=== PATIENT | female | born 1990 | race Caucasian/White ===

== ENCOUNTER 2020-10-02 07:55 | Inpatient (IN) | payer OTHER ==
[2020-10-02] MEDS: ELECTROLYTE-148 SOLN 1,000 ML IV SCH (10:00)
[2020-10-02] MEDS ORDERED: OXYTOCIN 30 UNITS in 0.9% NS 30 UNIT/500 ML INFUS.BAG IVPB ONE (10:44)
[2020-10-02 10:49] LABS: BASO % 0.7 % (0-2.0); EOS % 0.6 % (0-4.5); HEMATOCRIT 39.4 % (32.4-45.2); HEMOGLOBIN 13.1 GM/dL (10.7-15.3); LYMPH % 19.2 % (8-40); MCH 28.2 pg (25.7-33.7); MCHC 33.2 g/dl (32.0-36.0); MEAN PLT VOLUME 9.1 fl (7.5-11.1); NEUT % 72.5 % (42.8-82.8); PLATELET COUNT 143 10^3/uL (134-434); RBC 4.64 M/mm3 (3.60-5.2); WHITE BLOOD COUNT 10.9 K/mm3 (4.0-10.0)
[2020-10-02 10:56] LABS: INR 0.96 (0.83-1.09); PROTHROMBIN TIME (PATIENT) 11.6 SEC (9.7-13.0)
[2020-10-02 10:58] LABS: ACTIVATED PTT 26.2 SECONDS (25.2-36.5)
[2020-10-02] MEDS: OXYTOCIN 30 UNITS in 0.9% NS 30 UNIT/500 ML INFUS.BAG IVPB SCH (11:00)
[2020-10-02 11:06] LABS: BLOOD UREA NITROGEN 4.4 mg/dL (7-18); CALCIUM 9.1 mg/dL (8.5-10.1)
[2020-10-02 11:09] LABS: CREATININE 0.5 mg/dL (0.55-1.3)
[2020-10-02 11:56] VITALS: BMI 32.5
[2020-10-02] MEDS ORDERED: NALOXONE HCL 0.4 MG/ML VIAL IVPUSH PRN (19:24)
[2020-10-02] MEDS ORDERED: PCA PUMP NR ONE (19:30)
[2020-10-02] MEDS ORDERED: FENTANYL/BUPIVACAINE/NS/PF - PCEA - 50 ML DISP.SYRIN EP ONE (19:30)
[2020-10-02] MEDS: FENTANYL/BUPIVACAINE/NS/PF - PCEA - 50 ML DISP.SYRIN EP SCH (19:55)
[2020-10-02] MEDS ORDERED: LIDOCAINE HCL 1% PRESERVATIVE FREE - 30ML VIAL ONE (21:41)
[2020-10-02] MEDS ORDERED: OXYTOCIN 20 UNITS in 0.9% NS 20 UNIT/1,000 ML INFUS.BAG IV ONE (21:41)
[2020-10-03] MEDS ORDERED: FENTANYL/BUPIVACAINE/NS/PF - PCEA - 50 ML DISP.SYRIN EP ONE (00:09)
[2020-10-03] MEDS: FENTANYL/BUPIVACAINE/NS/PF - PCEA - 50 ML DISP.SYRIN EP SCH (00:25)
[2020-10-03] MEDS ORDERED: ONDANSETRON 4 MG/2 ML VIAL IVPUSH PRN (04:57)
[2020-10-03] MEDS ORDERED: OXYTOCIN 20 UNITS in 0.9% NS 20 UNIT/1,000 ML INFUS.BAG IV ONE (05:05)
[2020-10-03] MEDS ORDERED: ceFAZolin SODIUM 1 GM VIAL ONE (05:09)
[2020-10-03] MEDS ORDERED: SODIUM CHLORIDE 0.9% P/F 10 ML VIAL IJ ONE (05:09)
[2020-10-03] MEDS ORDERED: CLINDAMYCIN PHOSPHATE 600 MG/4 ML VIAL ONE (05:11)
[2020-10-03] MEDS ORDERED: OXYTOCIN 10 UNITS/ML VIAL ONE (05:21)
[2020-10-03] MEDS ORDERED: KETOROLAC TROMETHAMINE 30 MG/1 ML VIAL ONE (05:39)
[2020-10-03] MEDS ORDERED: ONDANSETRON 4 MG/2 ML VIAL ONE (05:39)
[2020-10-03] MEDS: OXYTOCIN 20 UNITS in 0.9% NS 20 UNIT/1,000 ML INFUS.BAG IV SCH (05:40)
[2020-10-03] MEDS ORDERED: IBUPROFEN 600 MG TABLET (FP) PO PRN (06:39)
[2020-10-03] MEDS ORDERED: BENZOCAINE 20% 57 GM BOTTLE TP PRN (06:39)
[2020-10-03] MEDS ORDERED: oxyCODONE HCL 5 MG TABLET PO PRN ×2 (06:39)
[2020-10-03] MEDS ORDERED: METHYLERGONOVINE MALEATE 0.2 MG/1 ML AMP IM PRN (06:39)
[2020-10-03] MEDS ORDERED: WITCH HAZEL 50% (TUCKS) 40 PAD/JAR PAD TP PRN (06:39)
[2020-10-03] MEDS ORDERED: IBUPROFEN 800 MG/8 ML IJ IVPB PRN (06:39)
[2020-10-03] MEDS ORDERED: BENZOCAINE 28 GM HEMORRHOIDAL OINTMENT TP PRN (06:39)
[2020-10-03] MEDS ORDERED: OXYTOCIN 20 UNITS in 0.9% NS 40 UNIT/2,000 ML INFUS.BAG IV ONE (07:47)
[2020-10-03] MEDS ORDERED: IBUPROFEN 800 MG/8 ML IJ IVPB ONE (07:59)
[2020-10-03 08:39] LABS: CORD HCO3 25.3 mmHg (20-29); CORD PCO2 51.1 mmHg (30-78); CORD pH 7.312 (7.14-7.44)
[2020-10-03 08:43] LABS: CORD BASE EXCESS -2.4 mmol/L (0-2); CORD HCO3 24.2 mmHg (20-29); CORD PCO2 47.6 mmHg (30-78); CORD pH 7.324 (7.14-7.44)
[2020-10-03] MEDS: PRENATAL VITAMINS W/ FOLIC ACID TABLET (FP) PO SCH (10:00)
[2020-10-03] MEDS: IBUPROFEN 600 MG TABLET (FP) PO PRN (21:26)
[2020-10-03] MEDS: ACETAMINOPHEN 325 MG TABLET (FP) PO PRN (21:26)
[2020-10-04] MEDS: IBUPROFEN 600 MG TABLET (FP) PO PRN ×4 (05:52→23:03)
[2020-10-04] MEDS: ACETAMINOPHEN 325 MG TABLET (FP) PO PRN ×4 (05:53→23:03)
[2020-10-04] MEDS: SIMETHICONE 80 MG TAB.CHEW (FP) PO PRN ×2 (05:53→11:48)
[2020-10-04] MEDS ORDERED: BISACODYL 10 MG SUPP.RECT RC PRN (06:39)
[2020-10-04] MEDS: PRENATAL VITAMINS W/ FOLIC ACID TABLET (FP) PO SCH (09:27)
[2020-10-04 09:53] LABS: BASO % 0.3 % (0-2.0); EOS % 0.5 % (0-4.5); HEMATOCRIT 30.9 % (32.4-45.2); HEMOGLOBIN 10.1 GM/dL (10.7-15.3); LYMPH % 12.2 % (8-40); MCH 28.1 pg (25.7-33.7); MCHC 32.7 g/dl (32.0-36.0); MEAN CELL VOLUME 86.1 fl (80-96); MEAN PLT VOLUME 9.1 fl (7.5-11.1); MONO % 7.5 % (3.8-10.2); NEUT % 79.5 % (42.8-82.8); PLATELET COUNT 116 10^3/uL (134-434); RBC 3.59 M/mm3 (3.60-5.2); RDW 15.1 % (11.6-15.6); WHITE BLOOD COUNT 14.2 K/mm3 (4.0-10.0)
[2020-10-04] MEDS: OXYTOCIN 30 UNITS in 0.9% NS 30 UNIT/500 ML INFUS.BAG IVPB SCH (18:56)
[2020-10-04] MEDS: ELECTROLYTE-148 SOLN 1,000 ML IV SCH ×2 (18:56→18:57)
[2020-10-04] MEDS: OXYTOCIN 20 UNITS in 0.9% NS 20 UNIT/1,000 ML INFUS.BAG IV SCH (18:57)
[2020-10-04] MEDS: FENTANYL/BUPIVACAINE/NS/PF - PCEA - 50 ML DISP.SYRIN EP SCH (18:57)
[2020-10-05] MEDS: ACETAMINOPHEN 325 MG TABLET (FP) PO PRN (08:06)
[2020-10-05] MEDS: IBUPROFEN 600 MG TABLET (FP) PO PRN (08:07)
[2020-10-05] MEDS: SIMETHICONE 80 MG TAB.CHEW (FP) PO PRN (08:10)
[2020-10-05] MEDS: PRENATAL VITAMINS W/ FOLIC ACID TABLET (FP) PO SCH (09:37)
[2020-10-05 10:14] VITALS: BP 122/61; PULSE 101
[2020-10-05 10:22] VITALS: TEMP 98.9
[2020-10-05] MEDS: OXYTOCIN 20 UNITS in 0.9% NS 20 UNIT/1,000 ML INFUS.BAG IV SCH (11:42)
== END 2020-10-05 13:40 | disposition home or self-care (01) | DRG 540 ==
LOC: JLDR 07:55 → J3W 10-03 15:45
PROVIDERS: ADMIT Obstetrics & Gynecology; ATTEND Obstetrics & Gynecology
PROC: 10907ZC Drainage of Amniotic Fluid, Therapeutic from Products of Conception, Via Natural or Artificial Opening (ICD-10-PCS; 2020-10-02)
PROC: 3E033VJ Introduction of Other Hormone into Peripheral Vein, Percutaneous Approach (ICD-10-PCS; 2020-10-02)
PROC: 10D00Z1 Extraction of Products of Conception, Low, Open Approach (ICD-10-PCS; principal; 2020-10-03)
DX: O32.4XX0 Maternal care for high head at term, not applicable or unspecified (principal); O61.0 Failed medical induction of labor; O99.12 Other diseases of the blood and blood-forming organs and certain disorders involving the immune mechanism complicating childbirth; D69.6 Thrombocytopenia, unspecified; Z3A.39 39 weeks gestation of pregnancy; Z37.0 Single live birth
CPT/HCPCS: 36415; 36600; 80048; 82803; 85025; 85610; 85730; 86780; 86850; 86900; 86901; 88307-TC; C9803; U0003; U0005